=== PATIENT | male | born 1945 | race Caucasian/White ===

== ENCOUNTER 2016-12-28 08:50 | Emergency (ER) | payer MEDICARE, MEDICAID ==
[~2016-12-28] VITALS: Ht 182.9 cm; Wt 100.8 kg
[~2016-12-28 08:50] MED LIST: HYDR-3341 PO; LISI-167 PO
[2016-12-28 08:54] VITALS: BP 146/76
== END 2016-12-28 09:32 | disposition home or self-care (01) ==
LOC: ED 09:12
DX: Z76.0 Encounter for issue of repeat prescription (principal); I10 Essential (primary) hypertension
CPT/HCPCS: 99283

== ENCOUNTER 2017-01-08 08:56 | Emergency (ER) | payer MEDICARE, MEDICAID ==
[~2017-01-08] VITALS: Ht 182.9 cm; Wt 101.0 kg
[2017-01-08] MEDS ORDERED: MORPHINE SULFATE 4 MG/ML, 1ML IVPush PRN (09:30)
[2017-01-08] MEDS ORDERED: MAALOX/HYOSCYAMINE/LIDOCAINE 45 ML BOTTLE ONE (09:30)
[2017-01-08] MEDS ORDERED: ONDANSETRON 2MG/ML, 2ML ONE (09:30)
[2017-01-08] MEDS ORDERED: MAALOX/HYOSCYAMINE/LIDOCAINE 45 ML BOTTLE PO ONE (09:30)
[2017-01-08] MEDS ORDERED: SODIUM CHLORIDE FLUSH 10ML SYR IVF ONE (09:30)
[2017-01-08] MEDS ORDERED: SODIUM CHLORIDE 0.9% 1,000ML IVBOLUS ONE (09:30)
[2017-01-08] MEDS ORDERED: MORPHINE SULFATE 4 MG/ML, 1ML ONE (09:30)
[2017-01-08] MEDS ORDERED: ONDANSETRON 2MG/ML, 2ML IVPush ONE (09:30)
[2017-01-08 10:03] LABS: ASPARTATE AMINO TRANSFERASE 76 U/L (15-37); BLOOD UREA NITROGEN 12 mg/dL (7-18)
[2017-01-08 10:14] LABS: IS PT STATUS REG ER OR PRE ER? YES
[2017-01-08 10:46] VITALS: BP 116/68
== END 2017-01-08 10:48 | disposition home or self-care (01) ==
LOC: ED 10:42
DX: K29.00 Acute gastritis without bleeding (principal); R07.89 Other chest pain; I10 Essential (primary) hypertension; Z88.8 Allergy status to other drugs, medicaments and biological substances
CPT/HCPCS: 36415; 71010; 80053; 83605; 83690; 84484; 85025; 93005; 96374; 96375; 96376; 99285; J2405; J7030

== ENCOUNTER 2017-01-25 11:27 | Emergency (ER) | payer MEDICARE, MEDICAID ==
[~2017-01-25] VITALS: Ht 182.9 cm; Wt 100.7 kg
[2017-01-25 11:32] VITALS: BP 109/71
[2017-01-25] MEDS ORDERED: HYDR25TA6 PO (11:41)
== END 2017-01-25 11:55 | disposition home or self-care (01) ==
LOC: ED 11:52
DX: Z76.0 Encounter for issue of repeat prescription (principal); I10 Essential (primary) hypertension
CPT/HCPCS: 99283

== ENCOUNTER 2017-03-28 10:45 | Emergency (ER) | payer MEDICARE, MEDICAID ==
[~2017-03-28] VITALS: Ht 182.9 cm; Wt 96.0 kg
[~2017-03-28 10:45] MED LIST changes: +HYDR25TA6 PO
[2017-03-28 10:46] VITALS: BP 122/70
== END 2017-03-28 12:25 | disposition home or self-care (01) ==
LOC: ED 11:39
DX: S67.22XA Crushing injury of left hand, initial encounter (principal); X58.XXXA Exposure to other specified factors, initial encounter; Y93.89 Activity, other specified; Y92.89 Other specified places as the place of occurrence of the external cause; Y99.8 Other external cause status
CPT/HCPCS: 29125; 99284

== ENCOUNTER 2017-04-15 17:04 | Emergency (ER) | payer MEDICARE, MEDICAID ==
[~2017-04-15] VITALS: Ht 182.9 cm; Wt 95.2 kg
[2017-04-15] MEDS ORDERED: METHOCARBAMOL 750 MG TABLET PO ONE (18:30)
[2017-04-15] MEDS ORDERED: IBUPROFEN 200 MG TABLET PO ONE (18:30)
[2017-04-15 19:15] VITALS: BP 132/74
== END 2017-04-15 19:43 | disposition home or self-care (01) ==
LOC: ED 19:19
DX: S16.1XXA Strain of muscle, fascia and tendon at neck level, initial encounter (principal); S60.222A Contusion of left hand, initial encounter; I10 Essential (primary) hypertension; Z98.890 Other specified postprocedural states; X58.XXXA Exposure to other specified factors, initial encounter; Y93.89 Activity, other specified; Y99.8 Other external cause status; Y92.513 Shop (commercial) as the place of occurrence of the external cause
CPT/HCPCS: 72125; 93005; 99284

== ENCOUNTER 2017-04-28 09:57 | Emergency (ER) | payer MEDICARE, MEDICAID ==
[~2017-04-28] VITALS: Ht 182.9 cm; Wt 95.3 kg
[2017-04-28 09:58] VITALS: BP 143/82
== END 2017-04-28 10:27 | disposition home or self-care (01) ==
LOC: ED 10:00
DX: Z76.0 Encounter for issue of repeat prescription (principal); I10 Essential (primary) hypertension; R09.81 Nasal congestion
CPT/HCPCS: 99283

== ENCOUNTER 2017-08-08 12:27 | Emergency (ER) | payer MEDICARE, MEDICAID ==
[~2017-08-08] VITALS: Ht 182.9 cm; Wt 97.1 kg
[2017-08-08 12:59] VITALS: BP 132/68
== END 2017-08-08 14:55 | disposition home or self-care (01) ==
LOC: ED 14:47
DX: S10.86XA Insect bite of other specified part of neck, initial encounter (principal); Z76.0 Encounter for issue of repeat prescription; I10 Essential (primary) hypertension; W57.XXXA Bitten or stung by nonvenomous insect and other nonvenomous arthropods, initial encounter; Y93.89 Activity, other specified; Y92.89 Other specified places as the place of occurrence of the external cause; Y99.8 Other external cause status
CPT/HCPCS: 99283

== ENCOUNTER 2018-02-18 09:26 | Emergency (ER) | payer MEDICARE, MEDICAID ==
[~2018-02-18] VITALS: Ht 182.9 cm; Wt 90.1 kg
[2018-02-18 10:13] LABS: BASOPHILS # (AUTO) 0.02 x10^3/uL (0-0.1); BASOPHILS % (AUTO) 1 % (0-1); EOSINOPHILS # (AUTO) 0.08 x10^3/uL (0-0.4); EOSINOPHILS % (AUTO) 2 % (1-7); LYMPHOCYTES # (AUTO) 0.55 x10^3/uL (1-3.4); LYMPHOCYTES % (AUTO) 16 % (22-44); MD NO; MEAN CORPUSCULAR HEMOGLOBIN 31.1 pg (27.5-34.5); MEAN CORPUSCULAR HGB CONC 33.6 g/dL (33.2-36.2); MEAN CORPUSCULAR VOLUME 92.6 fL (81-97); MEAN PLATELET VOLUME 7.2 fL (7.4-10.4); MONOCYTES # (AUTO) 0.29 x10^3/uL (0.2-0.8); MONOCYTES % (AUTO) 8 % (2-9); NEUTROPHILS # (AUTO) 2.55 x10^3/uL (1.8-6.8); NEUTROPHILS % (AUTO) 73 % (42-75); PLATELET COUNT 125 x10^3/uL (130-400); RED BLOOD COUNT 4.58 x10^6/uL (4.38-5.82); RED CELL DISTRIBUTION WIDTH 13.3 % (9.4-14.8)
[2018-02-18 10:26] LABS: ALANINE AMINOTRANSFERASE 77 U/L (12-78); ALBUMIN 3.4 g/dL (3.4-5.0); ANION GAP 6 mmol/L (5-15); CALCIUM 8.7 mg/dL (8.5-10.1); CHLORIDE 104 mmol/L (98-107)
[2018-02-18 10:28] LABS: ALKALINE PHOSPHATASE 78 U/L (45-117); BILIRUBIN,TOTAL 0.6 mg/dL (0.2-1.0); TOTAL PROTEIN 7.5 g/dL (6.4-8.2)
[2018-02-18 10:48] VITALS: BP 131/68
[2018-02-18] MEDS ORDERED: BACITRACIN ZINC OINT 500U/GM, 0.9 GM ONE (10:58)
== END 2018-02-18 11:19 | disposition home or self-care (01) ==
LOC: ED 11:03
DX: R11.2 Nausea with vomiting, unspecified (principal); I10 Essential (primary) hypertension
CPT/HCPCS: 36415; 80053; 83690; 85025; 93005; 99285

== ENCOUNTER 2018-09-26 13:50 | Emergency (ER) | payer MEDICARE, MEDICAID ==
[~2018-09-26] VITALS: Ht 182.9 cm; Wt 90.6 kg
[2018-09-26 14:29] VITALS: BP 128/61
== END 2018-09-26 16:43 | disposition home or self-care (01) ==
LOC: ED 16:41
DX: S39.012A Strain of muscle, fascia and tendon of lower back, initial encounter (principal); S29.012A Strain of muscle and tendon of back wall of thorax, initial encounter; S46.812A Strain of other muscles, fascia and tendons at shoulder and upper arm level, left arm, initial encounter; G89.11 Acute pain due to trauma; I10 Essential (primary) hypertension; Z87.19 Personal history of other diseases of the digestive system; W10.8XXA Fall (on) (from) other stairs and steps, initial encounter; Y93.89 Activity, other specified; Y92.89 Other specified places as the place of occurrence of the external cause; Y99.8 Other external cause status
CPT/HCPCS: 72072; 72110; 72125; 99284

== ENCOUNTER 2018-11-06 14:57 | Emergency (ER) | payer MEDICARE, MEDICAID ==
--- NOTE | 2018-11-06 16:02 | NUR ---
PT NOT IN LOBBY @ [id number]
--- NOTE | 2018-11-06 16:15 | NUR ---
NOT IN LOBBY @ [id number], [id number]
--- NOTE | 2018-11-06 16:16 | NUR ---
LATE ENTRY FOR 1555, PT CALLED, NOT IN LOBBY, WAITING ROOM BATHROOM WAS CHECKED BY DAMIÁN, ADELA. NOT IN BATHROOM
== END 2018-11-06 16:18 | disposition left against medical advice (07) ==
LOC: ED 16:12
DX: R42 Dizziness and giddiness (principal); Z53.21 Procedure and treatment not carried out due to patient leaving prior to being seen by health care provider

== ENCOUNTER 2018-12-22 12:36 | Emergency (ER) | payer MEDICARE, MEDICAID ==
[~2018-12-22] VITALS: Ht 182.9 cm; Wt 87.3 kg
[2018-12-22 12:41] VITALS: BP 138/77
[2018-12-22] MEDS ORDERED: SILVER NITRATE STICK TP ONE ×2 (12:49→13:30)
--- NOTE | 2018-12-22 13:25 | NUR ---
SILVER NITRATE STICK ORDERED AND ADMINISTERED BY HCIKI MORA. WOUND TO RT EXTREMITY IS NO LONGER BLEEDING, DRESSING APPLIED.
--- NOTE | 2018-12-22 13:54 | NUR ---
PT GIVEN DC INSTRUCTIONS, NO BLEEDING FROM WOUND. DRESSING CDI. PT AMB TO DC DESK WITH STEADY GAIT, NADN AT DC.
== END 2018-12-22 13:55 | disposition home or self-care (01) ==
LOC: ED 13:03
DX: M79.605 Pain in left leg (principal); I10 Essential (primary) hypertension
CPT/HCPCS: 99282

== ENCOUNTER 2020-04-11 12:57 | Emergency (ER) | payer MEDICARE, OTHER ==
[~2020-04-11] VITALS: Ht 182.9 cm; Wt 87.6 kg
--- NOTE | 2020-04-11 13:15 | NUR ---
PT AMBULATORY TO ROOM 25 W/ C/O FEELING LIKE HE HAS A PIECE OF MEAT STUCK IN HIS THROAT SINCE MONDAY NIGHT X 2 DAYS. PT STATES HE HAS HAD THIS HAPPEN BEFORE MANY YEARS AGO. PT DENIES DIFFICULTY BREATHING. PT ABLE TO SPEAK CLEAR FULL SENTENCES. ABLE TO MAINTAIN SECRETIONS. PT RESTING ON GURNEY. NADN. MONITORS APPLIED. VSS. WARM BLANKET PROVIDED.
--- NOTE | 2020-04-11 14:31 | NUR ---
PT STATES HE HAD 1 BOUT EMESIS AND NO LONGER FEELS LIKE HE HAS SOMETHING STUCK IN HIS THROAT. ERP NOTIFIED. PT RESTING ON GURNEY. NADN. FUENTES.
--- NOTE | 2020-04-11 14:45 | NUR ---
PT TAKEN TO XR IN STABLE CONDITION.
--- NOTE | 2020-04-11 14:51 | NUR ---
REPORT GIVEN TO SHAWN MISHRA.
--- NOTE | 2020-04-11 14:52 | NUR ---
REPORT RECEIVED FROM SHAWN RIZO. PLAN OF CARE DISCUSSED. PT IN IMAGING
--- NOTE | 2020-04-11 15:51 | NUR ---
certified nuclear medicine technologistyovani Watts called and states she will come in at 16:30 for EGD.
--- NOTE | 2020-04-11 16:07 | NUR ---
PATIENT TO BE MOVED TO T2 FOR ENDOSCOPY
--- NOTE | 2020-04-11 16:17 | NUR ---
UPDATED SON ON POC
--- NOTE | 2020-04-11 16:22 | NUR ---
ASSUMED CARE OF PATIENT. PATIENT MOVED TO T2 FOR ENDO. PT REPORTS HE THINKS HE HAS A PORK CHOP STUCK IN HIS THROAT SINCE MON. VS STABLE. 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 NSR NOTED. CALL LIGHT IN PLACE. WILL CONTINUE TO MONITOR.
[2020-04-11] MEDS ORDERED: PROPOFOL 10 MG/ML, 20ML IVPush ONE ×2 (16:30→17:30)
[2020-04-11] MEDS ORDERED: PROPOFOL 10 MG/ML, 20ML ONE (16:41)
--- NOTE | 2020-04-11 17:29 | NUR ---
ENDO PROCEDURE DONE. PT TOLERATED WELL. PT WAS GIVEN 240 MG TOTAL OF PROPOFOL IV PUSH BY DR TILLEY FOR SEDATION DURING THE PROCEDURE. PT ALERT AND TALKING. DR HARE WITH GI HAS UPDATED PATIENT. VS STABLE. 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 NSR NOTED. PT REPORTS HE WILL GET A RIDE HOME FROM HIS GRANDSON. CALL LIGHT IN PLACE. WILL CONTINUE TO MONITOR.
--- NOTE | 2020-04-11 17:49 | NUR ---
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
[2020-04-11 18:07] VITALS: BP 146/89
--- NOTE | 2020-04-11 18:13 | NUR ---
PT A&OX4, VS STABLE. NO ACUTE DISTRESS NOTED. PT ABLE TO GET SELF DRESSED AND VOIDED. GRANDSON PICKED UP PATIENT.
== END 2020-04-11 18:12 | disposition home or self-care (01) ==
LOC: ED 13:55
DX: T18.128A Food in esophagus causing other injury, initial encounter (principal); I10 Essential (primary) hypertension; X58.XXXA Exposure to other specified factors, initial encounter; Y93.89 Activity, other specified; Y92.89 Other specified places as the place of occurrence of the external cause; Y99.8 Other external cause status
CPT/HCPCS: 43247; 74220; 99152; 99285; J2704

== ENCOUNTER 2020-07-27 09:59 | Emergency (ER) | payer MEDICARE, MEDICAID ==
[~2020-07-27] VITALS: Ht 182.9 cm; Wt 91.9 kg
--- NOTE | 2020-07-27 10:39 | NUR ---
PT COMES IN C/O LEFT WRIST PAIN FOLLOWING GLF AFTER SLIPPING ICE. STATES HE HAS MINIMAL PAIN BUT WAS TOLD BY HIS EMPLOYER THAT HE HAD TO BE SEEN IN ED. PROVIDER AT BEDSIDE FOR ASSESSMENT. XRAY AT BEDSIDE. MONITORS CONNECTED. PT. STATES NO NEEDS AT THIS TIME.
[2020-07-27 11:39] VITALS: BP 127/76
--- NOTE | 2020-07-27 11:45 | NUR ---
LATE ENTRY: DISCHARGE INSTRUCTIONS EXPLAINED TO PT. PT. VERBALIZED UNDERSTANDING. RX AND RETURN TO WORK NOTE GIVEN TO PT. PT AMBULATED TO [facility] WITHOUT ASSISTANCE.
== END 2020-07-27 11:41 | disposition home or self-care (01) ==
LOC: ED 11:30
DX: S63.522A Sprain of radiocarpal joint of left wrist, initial encounter (principal); I10 Essential (primary) hypertension; Z87.891 Personal history of nicotine dependence; Y93.89 Activity, other specified; W01.0XXA Fall on same level from slipping, tripping and stumbling without subsequent striking against object, initial encounter; Y92.009 Unspecified place in unspecified non-institutional (private) residence as the place of occurrence of the external cause; Y99.8 Other external cause status
CPT/HCPCS: 29125; 99283

== ENCOUNTER 2020-09-09 09:35 | Emergency (ER) | payer MEDICARE, MEDICAID ==
[~2020-09-09] VITALS: Ht 182.9 cm; Wt 91.1 kg
[2020-09-09] MEDS ORDERED: METHOCARBAMOL 750 MG TABLET PO ONE (10:00)
[2020-09-09] MEDS ORDERED: HYDROcodone/APAP 5/325 TABLET PO ONE (10:00)
--- NOTE | 2020-09-09 10:02 | NUR ---
pt states that he has limited range in his right shoulder and neck, states he tripped over a cone at work and didn't feel till later that night.
[2020-09-09] MEDS ORDERED: HYDROcodone/APAP 5/325 TABLET ONE (10:16)
[2020-09-09] MEDS ORDERED: METHOCARBAMOL 750 MG TABLET ONE (10:16)
[2020-09-09 10:23] VITALS: BP 137/64
== END 2020-09-09 11:50 | disposition home or self-care (01) ==
LOC: ED 10:17
DX: S16.1XXA Strain of muscle, fascia and tendon at neck level, initial encounter (principal); S40.011A Contusion of right shoulder, initial encounter; I10 Essential (primary) hypertension; W18.30XA Fall on same level, unspecified, initial encounter; Y93.89 Activity, other specified; Y92.410 Unspecified street and highway as the place of occurrence of the external cause; Y99.8 Other external cause status
CPT/HCPCS: 72125; 99284

== ENCOUNTER 2020-10-30 09:57 | Emergency (ER) | payer MEDICARE, MEDICAID ==
[~2020-10-30] VITALS: Ht 188 cm; Wt 92.1 kg
--- NOTE | 2020-10-30 10:13 | NUR ---
PT AMBULATED TO THE RESTROOM WITH A STEADY GAIT Addendum: 10/30/20 at 1014 by MARY PT AMBULATED TO THE ROOM WITH A STEADY GAIT
--- NOTE | 2020-10-30 10:16 | NUR ---
PATIENT WALKED BACK FROM TRIAGE WITH CHIEF C/O "WOBBLY LEGS." PER PATIENT HE WENT TO BATHROOM THIS MORNING AND STATES HIS LEGS WERE "WOBBLY." PATIENT DENIES SOB, CP, AMAYA, NO DIZZINESS. PATIENT STATES HE HAS BEEN WORKING A LOT, AND FEELING MORE TIRED THAN USUAL. SHERRIN, VSS, CALL LIGHT WITHIN REACH.
--- NOTE | 2020-10-30 10:32 | NUR ---
pt is a 75 yr old male here for what he describes as weakness to his legs. 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 during the daily tasks pt states he walks, stands, and is on his feet for a majority of the day. distal pulses, sensation and gross/ fine motor intact.
[2020-10-30] MEDS ORDERED: ASPIRIN 81 MG TABLET CHEW PO ONE (11:00)
[2020-10-30] MEDS ORDERED: SODIUM CHLORIDE FLUSH 10ML SYR IVF ONE (11:00)
[2020-10-30] MEDS ORDERED: ASPIRIN 81 MG TABLET CHEW ONE (11:01)
[2020-10-30 11:05] LABS: BASOPHILS % (AUTO) 1 % (0-1); EOSINOPHILS % (AUTO) 3 % (1-7); LYMPHOCYTES % (AUTO) 19 % (22-44); MEAN CORPUSCULAR HEMOGLOBIN 32.2 pg (27.5-34.5); MEAN CORPUSCULAR HGB CONC 34.8 g/dL (33.2-36.2); MEAN PLATELET VOLUME 7.6 fL (7.4-10.4); MONOCYTES % (AUTO) 9 % (2-9); NEUTROPHILS % (AUTO) 68 % (42-75); PLATELET COUNT 108 x10^3/uL (130-400); RED CELL DISTRIBUTION WIDTH 13.7 % (9.4-14.8)
[2020-10-30 11:16] LABS: ALBUMIN 3.4 g/dL (3.4-5.0); ANION GAP 8 mmol/L (5-15); CALCIUM 8.7 mg/dL (8.5-10.1); CHLORIDE 111 mmol/L (98-107)
[2020-10-30 11:21] LABS: ALANINE AMINOTRANSFERASE 92 U/L (12-78); ALKALINE PHOSPHATASE 84 U/L (45-117); CREATININE 0.89 mg/dL (0.7-1.3); TOTAL PROTEIN 7.6 g/dL (6.4-8.2); TROPONIN I < 0.015 ng/mL (0.000-0.045)
--- NOTE | 2020-10-30 11:22 | NUR ---
spoke with provider to clarify asa admin. per provider no need to admin.
[2020-10-30 11:30] VITALS: BP 128/81
--- NOTE | 2020-10-30 11:41 | NUR ---
PT TO RESTROOM. Ambulates with a steady gait
[2020-10-30 11:55] LABS: MD SCAN
== END 2020-10-30 13:13 | disposition home or self-care (01) ==
LOC: ED 12:27
DX: R53.1 Weakness (principal); R42 Dizziness and giddiness; R07.89 Other chest pain; I10 Essential (primary) hypertension; I45.10 Unspecified right bundle-branch block; Z87.891 Personal history of nicotine dependence
CPT/HCPCS: 36415; 71045; 80053; 83880; 84484; 85025; 93005; 99285

== ENCOUNTER 2020-12-04 07:21 | Emergency (ER) | payer MEDICARE, MEDICAID ==
[~2020-12-04] VITALS: Ht 182.9 cm; Wt 91.2 kg
[2020-12-04 07:24] VITALS: BP 141/71
--- NOTE | 2020-12-04 07:29 | NUR ---
Pt ambulatory with steady gait back to room
[2020-12-04] MEDS ORDERED: KETOROLAC 30 MG/1 ML ONE (07:49)
--- NOTE | 2020-12-04 07:50 | NUR ---
MEDICATED NOTED ON MAR FOR NECK PAIN
[2020-12-04] MEDS ORDERED: KETOROLAC 30 MG/1 ML IM ONE (08:00)
--- NOTE | 2020-12-04 08:45 | NUR ---
pt states some improvement in pain since medicated. ambulated to discharge window steady gait
== END 2020-12-04 09:01 | disposition home or self-care (01) ==
LOC: ED 08:33
DX: S16.1XXA Strain of muscle, fascia and tendon at neck level, initial encounter (principal); W18.30XA Fall on same level, unspecified, initial encounter; Y93.89 Activity, other specified; Y92.89 Other specified places as the place of occurrence of the external cause; Y99.8 Other external cause status
CPT/HCPCS: 96372; 99283; J1885

== ENCOUNTER 2021-01-21 11:10 | Emergency (ER) | payer MEDICARE, MEDICAID ==
[~2021-01-21] VITALS: Ht 182.9 cm; Wt 89.9 kg
[2021-01-21 11:27] VITALS: BP 113/65
--- NOTE | 2021-01-21 11:52 | NUR ---
PT AMBULATORY TO ROOM 23 W/ C/O NOT FEELING WELL YESTERDAY W/ SOME SMALL BOUTS OF EMESIS AND CONGESTION W/ DIZZINESS. STATES HE CALLED IN SICK TO WORK AND WAS TOLD BY HIS BOSS THAT HE NEEDS A DR'S NOTE TO RETURN TO WORK. PT STATES HE FEELS BETTER TODAY AND HAS NOT HAD ANY SX. DENIES DIZZINESS/CP/SOB. PT STANDING AND AMBULATING IN ROOM W/ STEADY GAIT.
--- NOTE | 2021-01-21 12:43 | NUR ---
CARE FOR DC ONLY PROVIDED: PT AMB AT CHARGE DESK. NO IV TO DC. REVIEWED DC INSTRUCTIONS WITH PT, UNDERSTANDING VERBALIZED. PT LEFT AMB GAIT STEADY.
== END 2021-01-21 13:05 | disposition home or self-care (01) ==
LOC: ED 12:48
DX: R19.7 Diarrhea, unspecified (principal); R10.84 Generalized abdominal pain; R42 Dizziness and giddiness; R11.0 Nausea; I10 Essential (primary) hypertension; Z87.891 Personal history of nicotine dependence
CPT/HCPCS: 99281

== ENCOUNTER 2021-02-26 14:04 | Emergency (ER) | payer MEDICARE, MEDICAID ==
[~2021-02-26] VITALS: Ht 182.9 cm; Wt 89.2 kg
[2021-02-26 14:19] VITALS: BP 109/66
--- NOTE | 2021-02-26 14:28 | NUR ---
PT REFUSING EKG AT TIME OF TRIAGE.
== END 2021-02-26 15:22 | disposition home or self-care (01) ==
LOC: ED 14:30
DX: R11.10 Vomiting, unspecified (principal); I10 Essential (primary) hypertension
CPT/HCPCS: 99281

== ENCOUNTER 2021-05-08 06:56 | Emergency (ER) | payer MEDICARE, MEDICAID, OTHER ==
[~2021-05-08] VITALS: Ht 182.9 cm; Wt 87.8 kg
[2021-05-08 07:00] VITALS: BP 129/58
--- NOTE | 2021-05-08 07:10 | NUR ---
PT RESTING IN POSITION OF COMFORT. CALL LIGHT W/IN REACH. PT DENIES NEEDS. AWAITING EVAL BY ED MD. REPORT TO PT'S PRIMARY RN, JORDAN.
--- NOTE | 2021-05-08 09:42 | NUR ---
REVIEWED D/C PPOC/SXS TO WATCH FOR. TEACH BACK SUCCESSFUL
== END 2021-05-08 09:43 | disposition home or self-care (01) ==
LOC: ED 09:02
DX: S16.1XXA Strain of muscle, fascia and tendon at neck level, initial encounter (principal); S29.012A Strain of muscle and tendon of back wall of thorax, initial encounter; M25.511 Pain in right shoulder; I10 Essential (primary) hypertension; V49.09XA Driver injured in collision with other motor vehicles in nontraffic accident, initial encounter; Y93.89 Activity, other specified; Y92.410 Unspecified street and highway as the place of occurrence of the external cause; Y99.8 Other external cause status
CPT/HCPCS: 72020; 72050; 72072; 99284

== ENCOUNTER 2021-05-11 06:20 | Inpatient (IN) | payer MEDICARE, MEDICAID ==
[~2021-05-11] VITALS: Ht 182.9 cm; Wt 89.7 kg
[2021-05-13 08:55] VITALS: BP 127/70
== END 2021-05-13 16:30 | disposition home or self-care (01) | DRG 808 ==
LOC: ED 06:28 → EDIP 08:22 → SUATTDRO 08:47 → 3N 09:35
PROVIDERS: ADMIT Hospitalist; ATTEND Hospitalist
DX: D70.3 Neutropenia due to infection (principal); J18.9 Pneumonia, unspecified organism; D84.9 Immunodeficiency, unspecified; D69.6 Thrombocytopenia, unspecified; E87.6 Hypokalemia; I10 Essential (primary) hypertension